=== PATIENT | male | born 1955 ===

== ENCOUNTER → 2016-11-06 | Outpatient (CLI) | payer OTHER | LOC: C.LABSPEC 12:27 | DX: R04.2 Hemoptysis (principal) ==

== ENCOUNTER → 2016-11-07 | Outpatient (CLI) | payer OTHER | LOC: C.LABSPEC 07:30 | DX: R04.2 Hemoptysis (principal) ==

== ENCOUNTER → 2016-11-08 | Outpatient (CLI) | payer OTHER | LOC: C.LABSPEC 10:44 | DX: R04.2 Hemoptysis (principal) ==